=== PATIENT | female | born 1980 | race Hispanic/Latino ===

== ENCOUNTER 2018-02-24 13:02 | Outpatient (CLI) | payer OTHER ==
[2018-02-24 13:58] LABS: #Basophils 0.1 thou/uL (0.0-0.2); #Eosinphils 0.3 thou/uL (0.0-0.7); #Lymphocytes 2.5 thou/uL (1.20-3.40); #Monocytes 0.5 thou/uL (0.11-0.59); #Neutrophils 4.3 thou/uL (1.40-6.50); %Basophils 0.9 % (0.0-1.0); %Eosinophils 4.5 % (0.0-10.0); %Lymphocytes 32.3 % (21.0-51.0); %Monocytes 6.7 % (0.0-10.0); %Neutrophils 55.6 % (42.0-75.0); Hemoglobin 13.5 g/dL (12.0-16.0); Mean Corpuscular HGB CONC 34.3 g/dL (32.0-36.0); Mean Corpuscular Hemoglobin 32.8 pg (27.0-31.0); Mean Corpuscular Volume 95.5 fl (81.0-99.0); Mean Platelet Volume 6.6 fL (7.4-10.4); Platelet Count 325 thou/uL (130-400); RBC Distribution Width 13.1 % (11.5-14.5); Red Blood Cell (RBC) Count 4.11 mill/uL (4.20-5.40); White Blood Cell (WBC) Count 7.7 thou/uL (4.8-10.8)
[2018-02-24 14:19] LABS: Hemoglobin A1c 4.8 % (4.0-6.0)
[2018-02-24 14:20] LABS: Anion Gap 10 mmol/L (10-20); BUN (Urea Nitrogen) 16 mg/dL (7.0-18.7); Calc. Creatinine Clearance 0 mL/min (70-130); Calcium 9.1 mg/dL (7.8-10.44); Carbon Dioxide 26 mmol/L (22-29); Chloride 106 mmol/L (98-107); Estimated GFR-MDRD Greater than 90; Glucose 92 mg/dL (70-105); Potassium 3.9 mmol/L (3.5-5.1); Sodium 138 mmol/L (136-145)
== END 2018-02-24 13:03 | disposition home or self-care (01) ==
LOC: LABBT 13:02
PROVIDERS: ATTEND Specialist
DX: Z01.812 Encounter for preprocedural laboratory examination (principal); K43.9 Ventral hernia without obstruction or gangrene
CPT/HCPCS: 80048; 83036; 85025

== ENCOUNTER 2018-03-04 08:06 | Day surgery (SDC) | payer OTHER ==
[2018-02-24 13:12] VITALS: BMI 40.8
[2018-03-04] MEDS ORDERED: Ketorolac Tromethamine 30 MG/ML VIAL ONE ×2 (08:40→14:23)
[2018-03-04] MEDS ORDERED: Midazolam HCl 2 mg/2 ml Vial ONE ×2 (08:40→10:11)
[2018-03-04] MEDS ORDERED: CEFAZOLIN/Water 2 GM/20 ML SYRINGE ONE (08:40)
[2018-03-04] MEDS ORDERED: Bupivacaine/Epinephrine 0.25% 30 ML VIAL ONE ×2 (10:06→12:08)
[2018-03-04] MEDS ORDERED: Fentanyl 100 MCG/2 ML VIAL ONE ×5 (10:11→14:23)
[2018-03-04] MEDS ORDERED: Ondansetron PF 4 MG/2 ML Vial ONE ×2 (12:08→16:43)
[2018-03-04] MEDS ORDERED: HYDROmorphone 0.5 MG/0.5 ML SYRINGE ONE ×4 (13:27→14:10)
[2018-03-04] MEDS ORDERED: HYDROcodone/Acetaminophen 5/325 mg Tablet ONE ×2 (14:56→15:49)
[2018-03-04] MEDS ORDERED: PROPOFOL 200 MG/20 ML VIAL ONE (16:43)
[2018-03-04] MEDS ORDERED: Lidocaine 1% PF 5 ML VIAL ONE (16:43)
[2018-03-04] MEDS ORDERED: Glycopyrrolate 0.2 MG/ML 5 ML SYRINGE ONE (16:43)
--- NOTE | 2018-03-05 10:40 | OP ---
DATE OF PROCEDURE: 03/04/2018 PREOPERATIVE DIAGNOSIS: Ventral abdominal hernia. POSTOPERATIVE DIAGNOSIS: Ventral abdominal hernia with an umbilical hernia adjacent. OPERATION PERFORMED: Laparoscopic ventral hernia repair with a 10 x 15 cm Ventralight mesh patch. SURGEON: Han Barajas MD ANESTHESIA: General endotracheal. INDICATIONS: The patient is a 38-year-old female. She is recognized to have a visible and palpable supraumbilical hernia. This seems to protrude more to the right side of her abdomen. She i s obese. She is taken to the operating room at this time for laparoscopic ventral hernia repair. DESCRIPTION OF OPERATION: Informed consent was obtained. The patient was taken to the operating danisha m, where general endotracheal anesthesia obtained with the patient in supine position. Abdomen was p repped with ChloraPrep and draped in sterile fashion. Local anesthetic was infiltrated and a 5-mm le ft lateral abdominal incision was created. Veress needle was passed through this incision into the a bdominal cavity and pneumoperitoneum established using carbon dioxide up to a pressure of 15 mmHg. A 5-mm trocar was passed through the same incision. Laparoscopic camera was passed through this port. Under direct vision, 2 additional left-sided incisions were created, one was a 5 mm left lower abdo gunner incision, the other was a 12 mm left upper quadrant incision. Attention was turned to the intra-abdominal wall. The patient had an easily visible ventral hernia. There were no adhesions to this. There proved, with later investigation, to be an additional umbili rose marie hernia just inferior to this with about a 1 cm bridge of intact fascia between the two. When I m easured the ventral hernia, it was about 4 x 4 cm when measured internally. I dissected all of the p reperitoneal fat surrounding this and cleared the preperitoneal fat off the fascia for a distance of 4-5 cm in each direction using electrocautery. I also cleared the preperitoneal fat away from the um bilical hernia. When examining the two hernias in continuity, I felt that coverage with a 10 x 15 cm mesh patch would be adequate. I lowered the pressure within the abdomen and closed the fascial defects of both hernias with interru pted sutures of 0 Ethibond using a GraNee needle. The larger ventral hernia was closed with 3 interr upted sutures and the smaller umbilical hernia was closed with a single interrupted suture. I then obtained the mesh patch and placed 4 quadrant stay sutures of 0 Ethibond as well as a central suture of 0 Vicryl. The mesh was moistened and placed in the abdominal cavity. The stay sutures wer e withdrawn through the abdominal wall at predetermined locations using a GraNee needle. When it was ensured that the mesh laid snugly over the hernia defect, the sutures were secured. The SecureStrap device was then used to place a series of absorbable tacks around the circumference o f the mesh patch as well as internally within the patch. There was bleeding from one of these straps along the internal portion of the mesh and this was corrected with placement of a U suture of 0 Vicr yl. The fascia at the 12-mm port site was closed with 0 Vicryl suture using the GraNee needle. Additiona l local anesthetic was infiltrated. Skin incisions were approximated using 4-0 Monocryl subcuticular suture and Dermabond was placed externally. There were no complications and blood loss was negligib le. A pressure dressing was placed by taping a Kerlix roll over the hernia sac externally and then p lacing an abdominal binder. The patient was taken to recovery room in stable condition.
== END 2018-03-04 16:35 | disposition home or self-care (01) ==
LOC: SDC 08:06
PROVIDERS: ATTEND Specialist
PROC: 0WUF4JZ Supplement Abdominal Wall with Synthetic Substitute, Percutaneous Endoscopic Approach (ICD-10-PCS; principal; 2018-03-04)
DX: K43.9 Ventral hernia without obstruction or gangrene (principal); K42.9 Umbilical hernia without obstruction or gangrene; F17.210 Nicotine dependence, cigarettes, uncomplicated; E66.9 Obesity, unspecified; Z68.41 Body mass index [BMI] 40.0-44.9, adult
CPT/HCPCS: J0131; J1170; J1885; J2001; J2250; J2405; J2704; J3010